=== PATIENT | male | born 1965 | race Asian ===

== ENCOUNTER 2018-06-17 16:51 | Emergency (ER) | payer MEDICAID ==
[2018-06-17 17:11] VITALS: BP 150/92
[2018-06-17] MEDS ORDERED: methylPREDNISolone Sodium Succinate 125 MG/2 ML SDV IM ONE (17:26)
--- NOTE | 2018-06-17 17:27 | EDM.PDOC ---
ED HPI GENERAL MEDICAL PROBLEM - General Chief Complaint: Allergic Reaction Stated Complaint: BEE STING Time Seen by Provider: 06/17/18 17:15 Source of Information: Reports: Patient, Family History Limitations: Reports: No Limitations - History of Present Illness INITIAL COMMENTS - FREE TEXT/NARRATIVE: 52-year-old male with previous allergic reactions to bee stings was stung an hour ago on the right flank area. The bee flew into the car while [place] on the highway. He took some Benadryl and came in to be evaluated. No shortness of breath but he feels his face is swelling and his legs are itching. Onset: Sudden Duration: Hour(s): (Just over an hour ago) Location: Reports: Back Associated Symptoms: Denies: No Other Symptoms, Malaise, Nausea/Vomiting, Shortness of Breath - Related Data Allergies Allergy/AdvReac Type Severity Reaction Status Date / Time aspirin Allergy Hives Verified 06/17/18 17:05 Home Meds: Home Meds NK [No Known Home Meds] 06/17/18 [History] Past Medical History - Past Health History Medical/Surgical History: Denies Medical/Surgical History Social & Family History - Tobacco Use Smoking Status *Q: Current Every Day Smoker Years of Tobacco use: 30 Packs/Tins Daily: 1 ED ROS ALLERGIC REACTION - Review of Systems Review Of Systems: See Below Constitutional: Denies: Fever, Chills HEENT: Reports: Other (Facial swelling). Denies: Throat Swelling Respiratory: Denies: Shortness of Breath Cardiovascular: Denies: Chest Pain GI/Abdominal: Denies: Nausea, Vomiting Skin: Reports: Erythema (Especially of the face) ED EXAM GENERAL NO PERIP PULSE - Physical Exam Exam: See Below Exam Limited By: No Limitations General Appearance: Alert, Anxious Eye Exam: Bilateral Eye: Normal Inspection Throat/Mouth: Normal Inspection Head: Facial Swelling (He does appear to have a very slight puffiness to both cheeks with some slight erythema) Respiratory/Chest: No Respiratory Distress, Lungs Clear Cardiovascular: Regular Rate, Rhythm, Tachycardia Course - Vital Signs Last Recorded V/S: Last Vital Signs Temp 96.6 F 06/17/18 17:10 Pulse 114 H 06/17/18 17:10 Resp 14 06/17/18 17:10 BP 150/92 H 06/17/18 17:10 Pulse Ox 99 06/17/18 17:10 - Orders/Labs/Meds Meds: Medications Discontinued Medications Generic Name Dose Route Start Last Admin Trade Name Oz PRN Reason Stop Dose Admin Methylprednisolone Sodium Succinate 125 mg 06/17/18 17:26 06/17/18 17:41 Solu-Medrol IM 06/17/18 17:27 125 mg ONETIME ONE Administration - Re-Assessments/Exams Free Text/Narrative Re-Assessment/Exam: 06/17/18 17:25 This patient is not having a diffuse significant allergic reaction. He was given 125 mg of IM Solu-Medrol and he can continue to take 50 mg of Benadryl every 4-6 hours if needed. Return at any time if worsening despite treatment. Departure - Departure Time of Disposition: 17:48 Disposition: Home, Self-Care 01 Condition: Good Clinical Impression: Accidental bee sting - Discharge Information Instructions: Bee, Wasp, or Hornet Sting, Adult Referrals: PCP,None [Primary Care Provider] - Forms: ED Department Discharge Care Plan Goals: Continue to take Benadryl 50 mg every 4-6 hours if you have itching, swelling or redness. Return anytime if worsening such as shortness of breath or difficulty breathing despite treatment.
== END 2018-06-17 17:48 | disposition home or self-care (01) ==
LOC: JP.ED 16:51
DX: T63.441A Toxic effect of venom of bees, accidental (unintentional), initial encounter (principal); F17.210 Nicotine dependence, cigarettes, uncomplicated; Z88.6 Allergy status to analgesic agent
CPT/HCPCS: 96372; 99283; J2930

== ENCOUNTER 2019-08-21 18:44 | Emergency (ER) | payer MEDICAID ==
[2019-08-21 19:11] VITALS: BP 134/91; PULSE 99
--- NOTE | 2019-08-21 19:26 | EDM.PDOC ---
ED HPI GENERAL MEDICAL PROBLEM - General Chief Complaint: ENT Problem Stated Complaint: TOOTH PROBLEM Time Seen by Provider: 08/21/19 19:15 Source of Information: Reports: Patient History Limitations: Reports: No Limitations - History of Present Illness INITIAL COMMENTS - FREE TEXT/NARRATIVE: 53 yo male with a loose molar since yesterday. He didn't call his dentist or attempt to get in the clinic. Wants the tooth pulled. Denies fever of facial swelling. 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) Oral/Mouth Pain Score (Numeric/FACES): 6 - Related Data Allergies Allergy/AdvReac Type Severity Reaction Status Date / Time aspirin Allergy Hives Verified 08/21/19 19:08 Home Meds: Home Meds NK [No Known Home Meds] 06/17/18 [History] Past Medical History - Past Health History Medical/Surgical History: Denies Medical/Surgical History Social & Family History - Tobacco Use Smoking Status *Q: Current Every Day Smoker Years of Tobacco use: 37 Packs/Tins Daily: 1 - Caffeine Use Caffeine Use: Reports: Coffee - Recreational Drug Use Recreational Drug Use: No ED ROS ENT - Review of Systems Review Of Systems: ROS reveals no pertinent complaints other than HPI. Constitutional: Reports: No Symptoms HEENT: Reports: Dental Pain ED EXAM, ENT - Physical Exam Exam: See Below Exam Limited By: No Limitations General Appearance: Alert, WD/WN, No Apparent Distress Eye Exam: Bilateral Eye: EOMI, PERRL Ears: Normal External Exam, Normal Canal, Hearing Grossly Normal, Normal TMs Nose: Normal Inspection, No Blood Mouth/Throat: Other (poor dentitian. Tobacco stained teeth. Extensive amt of root exposure noted for many of his teeth. This L maxillary molar is loose and tipped medially. Not purulent or bloody drainage. ) Head: Atraumatic, Normocephalic Neck: Normal Inspection, Supple, Non-Tender. No: Lymphadenopathy (R), Lymphadenopathy (L) Course - Vital Signs Last Recorded V/S: Last Vital Signs Temp 36.6 C 08/21/19 19:09 Pulse 99 08/21/19 19:09 Resp 14 08/21/19 19:09 BP 134/91 H 08/21/19 19:09 Pulse Ox 99 08/21/19 19:09 Departure - Departure Time of Disposition: 19:25 Disposition: Home, Self-Care 01 Condition: Good Clinical Impression: Loosening of tooth - Discharge Information *PRESCRIPTION DRUG MONITORING PROGRAM REVIEWED*: No *COPY OF PRESCRIPTION DRUG MONITORING REPORT IN PATIENT ROSARIO: No Referrals: PCP,None [Primary Care Provider] - Additional Instructions: See your dentist for tooth extraction. Take Penicillin as directed until gone. Take ibuprofen and/or acetaminophen as needed for pain relief.
[2019-08-21] MEDS ORDERED: Penicillin V Potassium 250 MG Tab PO ONE (19:27)
== END 2019-08-21 19:42 | disposition home or self-care (01) ==
LOC: JP.ED 18:44
DX: K08.89 Other specified disorders of teeth and supporting structures (principal); F17.210 Nicotine dependence, cigarettes, uncomplicated; Z88.6 Allergy status to analgesic agent
CPT/HCPCS: 99282; A9270

== ENCOUNTER 2024-08-03 08:58 | Emergency (ER) | payer MEDICAID ==
[2024-08-03 09:12] VITALS: BP 140/85; PULSE 98
[2024-08-03 09:35] LABS: BASOPHILS ABSOLUTE AUTO 0.14 K/uL (0.00-0.10); BASOPHILS PERCENT AUTO 1.7 % (0.1-1.3); EOSINOPHILS ABSOLUTE AUTO 0.22 K/uL (0.00-0.40); EOSINOPHILS PERCENT AUTO 2.7 % (0.0-5.4); HEMATOCRIT 42.2 % (38.4-49.7); IMMATURE GRAN ABSOLUTE AUTO 0.04 K/uL (0.00-0.23); IMMATURE GRAN PERCENT AUTO 0.5 % (0.0-0.7); LYMPHOCYTES PERCENT AUTO 26.1 % (11.4-47.7); MEAN CORPUSCULAR HEMOGLOBIN 27.4 pg (31.6-35.5); MEAN CORPUSCULAR HGB CONC 33.2 g/dL (31.6-35.5); MEAN CORPUSCULAR VOLUME 82.6 fL (81.4-99.0); MONOCYTES ABSOLUTE AUTO 0.57 K/uL (0.20-0.90); MONOCYTES PERCENT AUTO 7.1 % (3.3-12.6); NEUTROPHILS ABSOLUTE AUTO 4.99 K/uL (1.0-7.6); NEUTROPHILS PERCENT AUTO 61.9 % (40.0-78.1); PLATELET COUNT,PLT 265 K/uL (130-375); RED BLOOD CELL COUNT 5.11 M/uL (4.14-5.76); WHITE BLOOD CELL COUNT,WBC 8.1 K/uL (3.2-11.0)
[2024-08-03 09:55] LABS: PROTHROMBIN TIME 9.8 sec (9.2-10.6); PTT,PARTIAL THROMBOPLSTIN TIME 25.6 sec (21.8-27.3)
[2024-08-03 09:58] LABS: BLOOD UREA NITROGEN,BUN 13 mg/dL (7-18); CARBON DIOXIDE,CO2 24 mmol/L (21-32); CHLORIDE,CL 107 mmol/L (100-108); CREATININE 1.1 mg/dL (0.8-1.3); EST CRCL DRUG DOSING (CG) 57.27 mL/min; ESTIMATED GFR 77 mL/min (>60); GLUCOSE RANDOM 81 mg/dL (74-106); PHOSPHORUS 3.2 mg/dL (2.5-4.9); POTASSIUM,K 3.9 mmol/L (3.6-5.2); SODIUM,NA 144 mmol/L (140-148)
[2024-08-03 09:59] LABS: TROPONIN I HIGH SENSITIVITY < 4.0 pg/mL (<=60.3)
[2024-08-03] MEDS: Ketorolac 30 MG/ML SDV IM ONE (10:27)
[2024-08-03] MEDS: Acetaminophen 500 MG Tab PO ONE (10:30)
== END 2024-08-03 10:47 ==
LOC: JP.ED 08:58
DX: R07.89 Other chest pain (principal); F17.210 Nicotine dependence, cigarettes, uncomplicated; Z88.8 Allergy status to other drugs, medicaments and biological substances
CPT/HCPCS: 36415; 71046; 80048; 83735; 84100; 84484; 85025; 85610; 85730; 93005; 93010; 99283; 99285; A9270

== ENCOUNTER 2024-08-21 13:40 | Emergency (ER) | payer MEDICAID ==
[2024-08-21 13:50] VITALS: BP 147/91; PULSE 84
== END 2024-08-21 14:57 | disposition home or self-care (01) ==
LOC: JP.ED 13:40
DX: H11.32 Conjunctival hemorrhage, left eye (principal); F17.210 Nicotine dependence, cigarettes, uncomplicated; Z79.82 Long term (current) use of aspirin
CPT/HCPCS: 70486; 70486-26; 99283; 99284